=== PATIENT | female | born 2005 | race Caucasian/White ===

== ENCOUNTER 2025-02-20 09:50 | Outpatient (CLI) | payer BC, MEDICAID, SELFPAY | END 2025-02-20 09:51 | disposition home or self-care (01) | PROVIDERS: PCP Family Medicine; Visit Provider Family Medicine | DX: D69.6 Thrombocytopenia, unspecified (principal); E55.9 Vitamin D deficiency, unspecified; F32.A Depression, unspecified; F41.1 Generalized anxiety disorder | CPT/HCPCS: 80053; 80061; 82306; 82607; 82728; 83540; 83550; 84439; 84443 ==